=== PATIENT | female | born 1995 | race African-American/Black ===

== ENCOUNTER 2016-09-01 21:27 | Inpatient (IN) | payer MEDICAID ==
[~2016-09-01] VITALS: Ht 180.3 cm; Wt 77.9 kg
[2016-09-01] MEDS ORDERED: CHARCOAL ACTIVATED LIQUID 25 GM/120 ML BTL PO ONE (21:45)
[2016-09-01 22:08] LABS: MEAN CORPUSCULAR HEMOGLOBIN 27.9 pg (27.0-33.0); MEAN CORPUSCULAR HGB CONC 33.1 g/dl (32.0-36.5); MEAN CORPUSCULAR VOLUME 84.3 fl (80.0-96.0); RED CELL DISTRIBUTION WIDTH 13.6 % (11.5-14.5); WHITE BLOOD COUNT 11.8 K/mm3 (4.0-10.0)
[2016-09-01 22:22] LABS: CONTROL LINE HCG INT CTR LINE PRESENT
[2016-09-01 22:30] LABS: METHADONE URINE NEGATIVE (NEGATIVE)
[2016-09-01 22:39] LABS: ALBUMIN 3.7 GM/DL (3.2-5.2); ALBUMIN/GLOBULIN RATIO 0.88 (1.00-1.93); ALKALINE PHOSPHATASE 81 U/L (45-117); ALT/SGPT 30 U/L (12-78); ANION GAP 6 MEQ/L (8-16); AST/SGOT 16 U/L (15-37); BILIRUBIN,DIRECT < 0.1 MG/DL (0.0-0.2); BILIRUBIN,TOTAL 0.2 MG/DL (0.2-1.0); BLOOD UREA NITROGEN 17 MG/DL (7-18); CALCIUM LEVEL 9.2 MG/DL (8.5-10.1); CARBON DIOXIDE LEVEL 31 MEQ/L (21-32); CHLORIDE LEVEL 102 MEQ/L (98-107); CREATININE FOR GFR 0.86 MG/DL (0.55-1.02); GLOMERULAR FILTRATION RATE > 60.0 (>60); GLUCOSE, FASTING 91 MG/DL (70-105); POTASSIUM SERUM 3.9 MEQ/L (3.5-5.1); SODIUM LEVEL 139 MEQ/L (136-145); TOTAL PROTEIN 7.9 GM/DL (6.4-8.2)
[2016-09-02] MEDS ORDERED: MOM 30ML SUSPENSION UDC PO PRN (04:00)
[2016-09-02] MEDS ORDERED: OLANZapine ORAL DISINTEGRATING TAB 5MG PO PRN (04:00)
[2016-09-02] MEDS ORDERED: MAALOX 30 ML SUSP *UDC PO PRN (04:00)
[2016-09-02] MEDS ORDERED: AMOX500T PO (04:13)
[2016-09-02 04:55] VITALS: BP 125/74
[2016-09-02 12:00] VITALS: BP 148/88
[2016-09-02] MEDS: ACETAMINOPHEN TAB 650MG DOSE (2X325MG) PO PRN ×2 (12:08→21:32)
[2016-09-02] MEDS: NICOTINE 21MG/24HR 1 EA TRANSDERMAL TD SCH (12:08)
[2016-09-02 17:03] VITALS: BP 126/82
[2016-09-02] MEDS: FLUoxetine 10 MG CAP PO SCH (17:04)
--- NOTE | 2016-09-02 17:38 | ECGEPIP ---
Stationary ECG Study 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
[2016-09-02 18:00] VITALS: BP 127/80
--- NOTE | 2016-09-02 18:47 | HPE ---
DATE OF ADMISSION: 09/02/2016 ADDENDUM I spoke with Dr. Brooke Pollard, hospitalist, and informed her of the situation regarding the possibility of a Wellbutrin overdose regarding the patient, but the patient says she has not taken any and that this was Tylenol in an old Wellbutrin bottle that she had been prescribed quite a while back. Poison Control had asked for a 24 hour cardiac monitoring, which was not done. We will ask for an EKG, 12 lead, and Dr. Pollard will come in and take a look and further recommendations will be make from there.
--- NOTE | 2016-09-02 19:38 | ECGEPIP ---
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
--- NOTE | 2016-09-02 20:21 | CR.PDOC ---
[facility] Consultation Consultation HOSPITALIST CONSULT NOTE Please note, Dr. Piedra spoke with me personally and asked me to evaluate the patient based on the fact that she had not received 24 hour cardiac monitoring, so I did see this patient in consultation. This patient had not already had a medical H&P completed, and this note will also serve as her medical H&P for the psych unit. Date of consult: 09/02/2016 Referring Provider: Dr. Piedra PCP: None Reason for Consult: Evaluation regarding lack of cardiac monitoring HPI: 21-year-old female with depression and polysubstance abuse who presented to the emergency room last night after taking "a bunch" of Tylenol, as well as four energy pills. She was evidently cleared in the emergency department from a medical standpoint and was admitted to inpatient psychiatry. Dr. Piedra calls me today, because he received a call from poison [facility]. Evidently, poison control had initially been told that the patient had taken some Wellbutrin, and had recommended 24 hours of cardiac monitoring. The patient did not receive any cardiac monitoring, so Dr. Piedra was calling me for my opinion. The patient however denies both to me and to Dr. Piedra having taken any Wellbutrin. She states that she has had Wellbutrin in the past, and thus had a bottle that was labeled for Wellbutrin, but she states that she had it filled Tylenol, and that Tylenol and caffeine pills were the only actual pills she overdosed on. Patient states that she has felt well today and has had no complaints. Dr. Oliva also does not report any clinical concerns. Past medical history: Depression and polysubstance abuse Past surgical history: None Family history: Diabetes and hypertension Social history: The patient currently smokes half a pack per day and has since she was 15. She denies any alcohol use. She admits to polysubstance abuse, particularly methamphetamines and "nerve medicine." She states that she used to abuse pain pills but currently is on Suboxone. Allergies: Bee venom Review of systems: General: Negative for fever and chills Eyes: Negative for vision changes and ocular discharge ENT: Negative for sore throat and nose bleed Cardiovascular: Negative for chest pain. Patient reports palpitations when she first took the medicine yesterday, but denies any palpitations currently. Respiratory: Negative for cough and shortness of breath GI: Negative for nausea, vomiting, diarrhea, constipation Musculoskeletal: Positive for chronic back pain Skin: Negative for rash Neuro: Positive for headache, negative for dizziness, numbness, tingling Psych: Positive for depression and suicidal attempt Endocrine: Negative for polyuria : Negative for dysuria Heme: Negative for bleeding Home meds: See below Physical exam: Vital signs: Vital Sign - Last 24 Hours 09/01/16 09/01/16 09/01/16 09/01/16 21:30 21:46 22:12 22:15 Temp 98.1 Pulse 100 98 Resp 18 B/P (MAP) 138/78 (98) 143/73 (96) Pulse Ox 100 98 O2 Delivery Room Air 09/01/16 09/01/16 09/01/16 09/01/16 22:17 22:17 22:30 22:45 Pulse 97 96 B/P (MAP) 128/83 (98) 129/71 (90) Pulse Ox 97 97 O2 Delivery Room Air 09/01/16 09/01/16 09/01/16 09/01/16 23:00 23:15 23:30 23:38 Pulse 97 94 98 B/P (MAP) 138/91 (107) 116/84 (95) 140/84 (102) Pulse Ox 97 98 98 09/01/16 09/02/16 09/02/16 09/02/16 23:45 00:00 00:15 00:30 Pulse 100 95 94 90 B/P (MAP) 142/75 (97) 120/80 (93) 136/75 (95) Pulse Ox 97 97 97 96 09/02/16 09/02/16 09/02/16 09/02/16 00:45 01:00 01:15 01:30 Pulse 84 85 81 83 B/P (MAP) 132/71 (91) 110/62 (78) 129/58 (81) 114/61 (78) Pulse Ox 97 97 96 96 09/02/16 09/02/16 09/02/16 09/02/16 01:45 02:00 02:15 02:30 Temp 97.9 Pulse 85 78 84 80 Resp 16 B/P (MAP) 112/67 (82) 112/69 (83) 128/86 (100) 123/81 (95) Pulse Ox 96 97 97 98 O2 Delivery Room Air 09/02/16 09/02/16 09/02/16 09/02/16 02:45 04:41 04:55 04:55 Temp 96.8 98.3 98.3 Pulse 81 92 102 102 Resp 16 20 20 B/P (MAP) 118/67 (84) 132/78 (96) 125/74 (91) 125/74 (91) Pulse Ox 97 99 99 99 O2 Delivery Room Air Room Air Room Air 09/02/16 09/02/16 09/02/16 09/02/16 04:55 12:00 17:03 18:00 Temp 98.3 97.8 98.9 Pulse 102 72 99 100 Resp 20 16 16 16 B/P (MAP) 125/74 148/88 (108) 126/82 (97) 127/80 (96) Pulse Ox 99 100 O2 Delivery Room Air Gen.: awake, alert, no acute distress Eyes: Extraocular movements intact, normal sclera ENT: Moist mucous membranes Cardiovascular: RRR, no murmurs rubs or gallops Lungs: clear to auscultation bilaterally, no rales, rhonchi, or wheeze Abdomen: Soft, NT/ND, normal BS Musculoskeletal: normal range of motion Extremities: No peripheral edema Neuro: alert and oriented 3, normal speech, no focal deficits Psych: Normal mood with congruent affect Labs and radiology: See below LFTs and Tylenol level completed last night were normal Assessment and plan: 21-year-old female with depression and polysubstance abuse who has been admitted to inpatient psychiatry. She admits to taking a bunch of Tylenol, as well as a few caffeine pills. There is some confusion as to whether or not she took Wellbutrin. The patient states she did not, but poison control initially received a report that she did. If she had taken Wellbutrin, poison control would've recommended 24 hours of cardiac monitoring, but this did not happen. I have seen the patient in consultation, and she clinically is very well- appearing. A repeat EKG today shows a normal QRS, as well as sinus rhythm. I spoke to [facility] on the phone myself, and they state that if the patient has clinically been doing well, and particularly if her QRS is normal, there are no further concerns and she does not need any cardiac monitoring. At this time, I recommend that she continue her treatment in inpatient psychiatry. The patient does not have any other medical problems, but please feel free to call us if other situations arise. We will check some labs in the morning, which will be followed up by our physician's advertising assistant manager Yumiko Weeks. Thank you for this consult. Vital Signs/I&O Vital Signs Date Time Temp Pulse Resp B/P (MAP) Pulse Ox O2 Delivery O2 Flow Rate FiO2 09/02/16 18:00 98.9 100 16 127/80 (96) 09/02/16 17:03 100 09/02/16 04:55 Room Air Laboratory Data Labs 24H Laboratory Tests 2 09/01/16 21:53: Anion Gap 6L, Glomerular Filtration Rate > 60.0, Calcium Level 9.2, Aspartate Amino Transf (AST/SGOT) 16, Alanine Aminotransferase (ALT/SGPT) 30, Alkaline Phosphatase 81, Total Bilirubin 0.2, Direct Bilirubin < 0.1, Total Protein 7.9, Albumin 3.7, Albumin/Globulin Ratio 0.88L, Thyroid Stimulating Hormone (TSH) 1.360, Human Chorionic Gonadotropin, Qual NEGATIVE, Salicylates Level 1.8L, Urine Amphetamines Screen NEGATIVE, Urine Benzodiazepines Screen NEGATIVE, Urine Opiates Screen NEGATIVE, Urine Methadone Screen NEGATIVE, Acetaminophen Level < 2.0L, Urine Barbiturates Screen NEGATIVE, Urine Phencyclidine Screen NEGATIVE, Urine Cocaine Metabolite Screen NEGATIVE, Urine Cannabinoids Screen NEGATIVE, Ethyl Alcohol Level < 0.003 09/02/16 01:40: Acetaminophen Level < 2.0L CBC/BMP Laboratory Tests 09/01/16 21:53 Red Blood Count 4.58, Mean Corpuscular Volume 84.3, Mean Corpuscular Hemoglobin 27.9, Mean Corpuscular Hemoglobin Concent 33.1, Red Cell Distribution Width 13.6 Allergies Coded Allergies: Bee Venom (Verified Allergy, Unknown, 09/01/16) Home Medications Scheduled Amoxicillin (Amoxicillin) 500 Mg Tab, 500 MG PO Q8H, (Reported) For 10 days; Started 08/31/2016 TATIANA RAMOS Sep 02, 2016 20:21
[2016-09-02] MEDS: traZODone 50 MG TAB PO PRN (21:32)
[2016-09-02] MEDS: cloNIDine 0.1 MG TAB PO SCH (21:32)
[2016-09-02] MEDS: AMOXICILLIN 500 MG CAP PO SCH (22:15)
[2016-09-03] MEDS: AMOXICILLIN 500 MG CAP PO SCH ×3 (05:52→21:37)
--- NOTE | 2016-09-03 06:10 | HPE ---
DATE OF ADMISSION: 09/02/2016 HISTORY OF PRESENT ILLNESS: Please refer to psychiatric history and evaluation for further details on this admission. This examination and history is intended for medical issues, which may need treatment, followup or consultation on this 21-year-old female. ALLERGIES: Bee venom. PRIMARY CARE PROVIDER: She currently does not have one. SOCIAL HISTORY: She is single, lives with her brother. ETOH none. Smokes one-half pack of cigarettes per day. Recreational drug use: Intravenous (IV) methamphetamine, IV Suboxone, pain pills by mouth. PAST MEDICAL HISTORY: Negative. PAST SURGICAL HISTORY: Negative. HOME MEDICATIONS: - amoxicillin 500 mg one by mouth every eight hours for a tooth abscess FAMILY HISTORY: Noncontributory. LABORATORY DATA: WBC 11.8, hemoglobin 12.8, hematocrit 38.6, platelet count 313, electrolytes were normal. BUN 17, creatinine 0.86. EKG shows sinus rhythm with slight sinus arrhythmia, rate of 96. She had taken a Tylenol overdose. Her initial acetaminophen level was less than 2.0. Her liver enzymes were normal. Repeat was less than 2.0. Will recheck again in the morning. REVIEW OF SYSTEMS: Ten systems review was done. She had no complaints other than the abscessed tooth. OBJECTIVE: VITAL SIGNS: Height 71 inches, weight 78.6 kilograms, body mass index (BMI) 24.2. Blood pressure 125/74, pulse 92, respirations 20, temperature 98.3. GENERAL: The patient is awake, alert and oriented times three. HEENT: Pupils equal, round, reactive to light. Extraocular muscles intact. Cornea and sclerae clear. Conjunctiva is normal. No facial asymmetry. Pharynx, tongue and gum is pink and moist. Tongue is midline. NECK: Neck is supple without lymphadenopathy. No thyromegaly. No goiter. CHEST: Clear to auscultation without wheeze or retraction. HEART: Heart is regular. ABDOMEN: Benign. Bowel sounds positive. GENITOURINARY ()/RECTAL: Not done. EXTREMITIES: Equal strength with full range of motion. No clubbing, cyanosis, and edema. Peripheral pulses are equal and palpable bilaterally. SKIN: Warm and dry. ASSESSMENT AND PLAN: 1. Psychiatric plan per psychiatry. 2. Monitor for drug withdrawal. 3. Will order hepatitis A, B and C. 4. Repeat comprehensive metabolic profile. 5. Repeat acetaminophen level. 6. Continue amoxicillin for tooth abscess 500 mg by mouth every eight hours.
[2016-09-03 06:32] VITALS: BP 132/60
[2016-09-03] MEDS: NICOTINE 21MG/24HR 1 EA TRANSDERMAL TD SCH (08:03)
[2016-09-03] MEDS: FLUoxetine 10 MG CAP PO SCH (08:03)
[2016-09-03] MEDS: ACETAMINOPHEN TAB 650MG DOSE (2X325MG) PO PRN ×3 (08:03→21:39)
[2016-09-03 08:32] LABS: ALBUMIN 3.4 GM/DL (3.2-5.2); ALBUMIN/GLOBULIN RATIO 0.89 (1.00-1.93); ALKALINE PHOSPHATASE 72 U/L (45-117); ALT/SGPT 31 U/L (12-78); ANION GAP 6 MEQ/L (8-16); AST/SGOT 16 U/L (15-37); BILIRUBIN,TOTAL 0.3 MG/DL (0.2-1.0); BLOOD UREA NITROGEN 13 MG/DL (7-18); CALCIUM LEVEL 8.9 MG/DL (8.5-10.1); CARBON DIOXIDE LEVEL 30 MEQ/L (21-32); CHLORIDE LEVEL 105 MEQ/L (98-107); CREATININE FOR GFR 0.78 MG/DL (0.55-1.02); GLOMERULAR FILTRATION RATE > 60.0 (>60); GLUCOSE, FASTING 77 MG/DL (70-105); POTASSIUM SERUM 4.4 MEQ/L (3.5-5.1); SODIUM LEVEL 141 MEQ/L (136-145); TOTAL PROTEIN 7.2 GM/DL (6.4-8.2)
[2016-09-03 12:00] VITALS: BP 130/79
[2016-09-03] MEDS: BENZOCAINE 7.5 % LIQ (BABY ORAJEL) TOP PRN ×2 (13:58→21:40)
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
[2016-09-03 18:00] VITALS: BP 124/80
[2016-09-03 21:37] VITALS: BP 129/81
[2016-09-03] MEDS: cloNIDine 0.1 MG TAB PO SCH (21:37)
[2016-09-03] MEDS: traZODone 50 MG TAB PO PRN (21:37)
[2016-09-04] MEDS: AMOXICILLIN 500 MG CAP PO SCH ×2 (06:02→14:51)
[2016-09-04 06:06] VITALS: BP 118/66
[2016-09-04] MEDS: NICOTINE 21MG/24HR 1 EA TRANSDERMAL TD SCH (08:04)
[2016-09-04] MEDS: FLUoxetine 10 MG CAP PO SCH (08:04)
[2016-09-04] MEDS: ACETAMINOPHEN TAB 650MG DOSE (2X325MG) PO PRN (08:05)
[2016-09-04] MEDS ORDERED: QUEtiapine FUMARATE 50 MG TAB PO SCH (09:00)
[2016-09-04] MEDS ORDERED: SERTRALINE HCL 50 MG TAB PO SCH (09:00)
[2016-09-04] MEDS ORDERED: BENZOCAINE 7.5% TOP ×2 (13:38→14:50)
[2016-09-04] MEDS ORDERED: CLONI1TA PO ×2 (13:38→14:50)
[2016-09-04] MEDS ORDERED: TRAZO50TA PO ×2 (13:38→14:50)
[2016-09-04] MEDS ORDERED: AMOX500C PO ×2 (13:38→14:50)
[2016-09-04] MEDS ORDERED: QUET5TAB PO ×2 (13:38→14:50)
[2016-09-04] MEDS ORDERED: SERT50TA PO ×2 (13:38→14:50)
[2016-09-04] MEDS ORDERED: QUET1TAB7 PO ×2 (13:38→14:50)
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
[2016-09-04] MEDS ORDERED: QUEtiapine FUMARATE 25 MG TAB PO SCH (21:00)
[2016-09-05] MEDS ORDERED: FLUoxetine 20 MG CAP PO SCH (09:00)
== END 2016-09-04 17:23 | disposition home or self-care (01) | DRG 754 ==
LOC: M ED 22:18 → M ED INP 09-02 03:57 → M PSY 09-02 04:55
PROVIDERS: ADMIT Psychiatry & Neurology Psychiatry; ATTEND Psychiatry & Neurology Psychiatry
DX: F32.9 Major depressive disorder, single episode, unspecified (principal); F11.10 Opioid abuse, uncomplicated; T43.622A Poisoning by amphetamines, intentional self-harm, initial encounter; T43.611A Poisoning by caffeine, accidental (unintentional), initial encounter; F17.210 Nicotine dependence, cigarettes, uncomplicated; K04.7 Periapical abscess without sinus; F15.14 Other stimulant abuse with stimulant-induced mood disorder; F14.10 Cocaine abuse, uncomplicated; Z62.810 Personal history of physical and sexual abuse in childhood; Z62.811 Personal history of psychological abuse in childhood; Z91.030 Bee allergy status